=== PATIENT | female | born 1955 | race Caucasian/White ===

== ENCOUNTER 2018-05-23 05:34 | Inpatient (IN) | payer OTHER ==
[2018-05-23] MEDS: traMADol 50 MG TAB PO (06:10)
[2018-05-23] MEDS: DEXAMETHASONE 1 MG TAB PO (06:10)
[2018-05-23] MEDS: GABAPENTIN 300 MG CAP PO ×2 (06:10→21:21)
[2018-05-23] MEDS: LACTATED RINGER'S 1,000 ML IV ×2 (06:30→15:57)
[2018-05-23] MEDS ORDERED: BUPIVACAINE 0.5%/EPI (SDV) 30 ML INJ (06:47)
[2018-05-23] MEDS: CEFAZOLIN 2 GM/50 ML (PMX) 50 ML IVPB (07:00)
[2018-05-23] MEDS ORDERED: NEOSTIGMINE 3 MG/3 ML SYRINGE (07:08)
[2018-05-23] MEDS ORDERED: GLYCOPYRROLATE 0.4 MG INJ (07:08)
[2018-05-23] MEDS ORDERED: PROPOFOL 20 ML (07:08)
[2018-05-23] MEDS ORDERED: CEFAZOLIN 1 GM INJ (07:08)
[2018-05-23] MEDS ORDERED: ROCURONIUM 50 MG INJ (07:08)
[2018-05-23] MEDS ORDERED: MIDAZOLAM 1 MG/ML 2 ML INJ (07:09)
[2018-05-23] MEDS ORDERED: DEXAMETHASONE 4 MG/ML 1 ML INJ (07:09)
[2018-05-23] MEDS ORDERED: ONDANSETRON 4 MG INJ (07:09)
[2018-05-23] MEDS ORDERED: FENTAnyl 50 MCG/ML VIAL (07:09)
[2018-05-23] MEDS ORDERED: ROPIVACAINE 0.5 % 30 ML VIAL (07:12)
[2018-05-23] MEDS ORDERED: MEPERIDINE 25 MG INJ IV (07:30)
[2018-05-23] MEDS ORDERED: MIDAZOLAM 1 MG/ML 2 ML INJ IV (07:30)
[2018-05-23] MEDS ORDERED: IPRATROPIUM (NEB) 0.5 MG/2.5 ML AMP HHN (07:30)
[2018-05-23] MEDS ORDERED: DIPHENHYDRAMINE 50 MG INJ IV ×2 (07:30→09:00)
[2018-05-23] MEDS ORDERED: hydrALAzine 20 MG INJ IV (07:30)
[2018-05-23] MEDS ORDERED: LABETALOL HCL 20MG INJ IV (07:30)
[2018-05-23] MEDS ORDERED: TRIMETHOBENZAMIDE 100 MG/ML VIAL IM (07:30)
[2018-05-23] MEDS ORDERED: OXYCODONE/ACETAMINOPHEN (5/325) TAB PO ×3 (07:30→09:00)
[2018-05-23] MEDS ORDERED: EPHEDrine SULFATE 50 MG/5 ML SYG IV (07:30)
[2018-05-23] MEDS ORDERED: HYDROmorphONE 1 MG/5 ML IV SYRINGE IV ×3 (07:30)
[2018-05-23] MEDS: TRANEXAMIC ACID 1,000 MG in DEXTROSE 5% 100 ML IVPB (07:30)
[2018-05-23] MEDS ORDERED: FENTAnyl 50 MCG/ML VIAL IV ×3 (07:30)
[2018-05-23] MEDS ORDERED: ALBUTEROL 0.083% (NEB) 2.5 MG/3 ML AMP HHN (07:30)
[2018-05-23] MEDS: POLYMYXIN/BACITRACIN 1L IRRIG (07:41)
[2018-05-23] MEDS: BUPIVACAINE 0.5% (SDV) 30 ML, morphine SULFATE (PF) 8 MG, EPINEPHrine 0.3 MG, KETOROLAC... IRR (07:43)
[2018-05-23] MEDS: CA CHLORIDE 10% 10 ML SYRINGE (08:08)
[2018-05-23] MEDS: THROMBIN 5000 UNIT VIAL (08:08)
[2018-05-23] MEDS ORDERED: MAGNESIUM HYDROXIDE 30ML CUP PO (09:00)
[2018-05-23] MEDS ORDERED: ONDANSETRON 4 MG INJ IV (09:00)
[2018-05-23] MEDS ORDERED: KETOROLAC 15 MG INJ IV (09:00)
[2018-05-23] MEDS ORDERED: morphine 2 MG INJ IV (09:00)
[2018-05-23] MEDS ORDERED: ACETAMINOPHEN 500 MG TAB PO (09:00)
[2018-05-23] MEDS ORDERED: ZOLPIDEM 5 MG TAB PO (09:00)
[2018-05-23] MEDS: PROVENTIL HFA 6.7GM INHALER INH ×4 (09:00→21:00)
[2018-05-23] MEDS ORDERED: ASPIRIN (EC) 325 MG TAB PO (09:18)
[2018-05-23] MEDS ORDERED: CEFAZOLIN 1 GM/50 ML (PMX) 50 ML IVPB (09:21)
[2018-05-23] MEDS ORDERED: ASPIRIN 81 MG TAB (09:34)
[2018-05-23] MEDS: TRANEXAMIC ACID 1,000 MG in DEXTROSE 5% 100 ML IV (09:59)
[2018-05-23] MEDS: ASPIRIN 81 MG TAB PO (10:02)
[2018-05-23] MEDS: CEFAZOLIN 1 GM/50 ML (PMX) 50 ML IVPB ×2 (10:06→17:31)
[2018-05-23] MEDS: ONDANSETRON 4 MG INJ IV (10:13)
[2018-05-23] MEDS: DEXAMETHASONE 2 MG TAB PO ×2 (11:58→17:31)
[2018-05-23] MEDS: SENNA/DOCUSATE NA (8.6MG/50MG) TAB PO ×2 (11:58→21:21)
[2018-05-23] MEDS: morphine 2 MG INJ IV (18:51)
[2018-05-23] MEDS: OXYCODONE/ACETAMINOPHEN (5/325) TAB PO (21:31)
[2018-05-24] MEDS: PROVENTIL HFA 6.7GM INHALER INH ×3 (00:36→08:25)
[2018-05-24] MEDS: CEFAZOLIN 1 GM/50 ML (PMX) 50 ML IVPB (00:41)
[2018-05-24] MEDS: DEXAMETHASONE 2 MG TAB PO ×2 (00:41→06:03)
[2018-05-24] MEDS: OXYCODONE/ACETAMINOPHEN (5/325) TAB PO (06:05)
[2018-05-24] MEDS: SENNA/DOCUSATE NA (8.6MG/50MG) TAB PO (08:23)
[2018-05-24] MEDS: ASPIRIN 81 MG TAB PO (08:23)
== END 2018-05-24 12:10 | disposition home or self-care (01) | DRG 483 ==
LOC: REC 05:34 → MS1 09:59
PROC: 0RRJ00Z Replacement of Right Shoulder Joint with Reverse Ball and Socket Synthetic Substitute, Open Approach (ICD-10-PCS; principal; 2018-05-23 07:00)
PROC: 0PB90ZZ Excision of Right Clavicle, Open Approach (ICD-10-PCS; 2018-05-23 07:00)
DX: M75.101 Unspecified rotator cuff tear or rupture of right shoulder, not specified as traumatic (principal)
CPT/HCPCS: 73030-RT; 86999; 88304; 88311; 97166

== ENCOUNTER 2018-08-17 09:32 | Inpatient (IN) | payer OTHER ==
[~2018-08-17 09:32] MED LIST: DESFLURANE 15 MIN; GLYCOPYRROLATE 0.4 MG INJ; METOCLOPRAMIDE 10 MG INJ; NEOSTIGMINE 3 MG/3 ML SYRINGE; TRANEXAMIC ACID 1GM/100ML(PMX) 100 ML IVPB
[2018-08-17] MEDS ORDERED: BUPIVACAINE 0.5% (SDV) 30 ML, morphine SULFATE (PF) 8 MG, EPINEPHrine 0.3 MG, KETOROLAC... IRR (10:00)
[2018-08-17] MEDS ORDERED: CEFAZOLIN 2 GM/50 ML (PMX) 50 ML IVPB (10:00)
[2018-08-17] MEDS ORDERED: FENTAnyl 50 MCG/ML VIAL (10:17)
[2018-08-17] MEDS ORDERED: LIDOCAINE 2% (SDV) 5 ML INJ (10:18)
[2018-08-17] MEDS ORDERED: MIDAZOLAM 1 MG/ML 2 ML INJ (10:18)
[2018-08-17] MEDS ORDERED: PROPOFOL 20 ML (10:18)
[2018-08-17] MEDS ORDERED: ONDANSETRON 4 MG INJ (10:20)
[2018-08-17] MEDS ORDERED: IPRATROPIUM (NEB) 0.5 MG/2.5 ML AMP HHN (10:30)
[2018-08-17] MEDS ORDERED: LEVALBUTEROL (NEB) 1.25 MG/0.5 ML AMP HHN (10:30)
[2018-08-17] MEDS ORDERED: ONDANSETRON 4 MG INJ IV ×2 (10:30→14:00)
[2018-08-17] MEDS ORDERED: MIDAZOLAM 1 MG/ML 2 ML INJ IV (10:30)
[2018-08-17] MEDS ORDERED: MEPERIDINE 25 MG INJ IV (10:30)
[2018-08-17] MEDS ORDERED: hydrALAzine 20 MG INJ IV (10:30)
[2018-08-17] MEDS ORDERED: FENTAnyl 50 MCG/ML VIAL IV ×2 (10:30)
[2018-08-17] MEDS ORDERED: DIPHENHYDRAMINE 50 MG INJ IV ×2 (10:30→14:00)
[2018-08-17] MEDS ORDERED: HYDROmorphONE 1 MG/5 ML IV SYRINGE IV ×3 (10:30)
[2018-08-17] MEDS ORDERED: LABETALOL HCL 20MG INJ IV (10:30)
[2018-08-17] MEDS: GABAPENTIN 300 MG CAP PO ×2 (10:38→20:39)
[2018-08-17] MEDS: DEXAMETHASONE 1 MG TAB PO (10:38)
[2018-08-17] MEDS ORDERED: ROPIVACAINE 0.5 % 30 ML VIAL (12:00)
[2018-08-17] MEDS ORDERED: THROMBIN 5000 UNIT VIAL (12:32)
[2018-08-17] MEDS: POLYMYXIN/BACITRACIN 1L IRRIG (12:32)
[2018-08-17] MEDS ORDERED: CA CHLORIDE (GM) 10% 10 ML INJ (12:32)
[2018-08-17] MEDS ORDERED: EPHEDrine 50 MG INJ (13:00)
[2018-08-17] MEDS: PROVENTIL HFA 6.7GM INHALER INH (13:00)
[2018-08-17] MEDS ORDERED: ZOLPIDEM 5 MG TAB PO (14:00)
[2018-08-17] MEDS ORDERED: oxyCODONE 5 MG TAB PO ×2 (14:00)
[2018-08-17] MEDS ORDERED: MAGNESIUM HYDROXIDE 30ML CUP PO (14:00)
[2018-08-17] MEDS ORDERED: NACL 0.9% 3 ML SYG IV (14:00)
[2018-08-17] MEDS ORDERED: LOPERAMIDE 2 MG CAP PO (14:00)
[2018-08-17] MEDS ORDERED: KETOROLAC 15 MG INJ IV (14:00)
[2018-08-17] MEDS: TRANEXAMIC ACID 1GM/100ML(PMX) 100 ML IVPB (14:33)
[2018-08-17] MEDS: CEFAZOLIN 1 GM/50 ML (PMX) 50 ML IVPB ×2 (14:33→21:40)
[2018-08-17] MEDS ORDERED: NITROGLYCERIN (SL) 0.4 MG TAB SL (17:00)
[2018-08-17 17:43] LABS: ADD MAN DIFF? NO
[2018-08-17 17:47] LABS: WHITE BLOOD COUNT 12.2 10^3/ul (4.8-10.8)
[2018-08-17 17:47] LABS: BASOPHIL # 0.1 10^3/ul (0.0-0.1); BASOPHILS % 0.4 % (0.0-2.0); EOSINOPHILS % 0.1 % (0.0-7.0); HEMATOCRIT 34.2 % (37.0-47.0); HEMOGLOBIN 10.8 g/dl (12.0-16.0); LYMPHOCYTES # 1.1 10^3/ul (0.8-2.9); LYMPHOCYTES % 8.9 % (15.0-51.0); MEAN CORPUSCULAR HEMOGLOBIN 28.4 pg (29.0-33.0); MEAN CORPUSCULAR HGB CONC 31.6 g/dl (32.0-37.0); MONOCYTE # 0.7 10^3/ul (0.3-0.9); MONOCYTES % 5.5 % (0.0-11.0); NEUTROPHIL # 10.3 10^3/ul (1.6-7.5); NEUTROPHILS % 84.7 % (39.0-77.0); PLATELET COUNT 233 10^3/UL (140-415); RED CELL DISTRIBUTION WIDTH 13.8 % (11.5-14.5)
[2018-08-17 17:50] LABS: POSITIVE DIFF @See below
[2018-08-17 18:04] LABS: ALBUMIN 3.2 g/dl (3.3-4.9); ANION GAP 3 (5-13); BLOOD UREA NITROGEN 15 mg/dl (7-20); CALCIUM 8.4 mg/dl (8.4-10.2); CARBON DIOXIDE 26 mmol/L (21-31); CHLORIDE 107 mmol/L (97-110); CREATININE 0.69 mg/dl (0.44-1.00); GLUCOSE 87 mg/dl (70-220); MAGNESIUM 1.7 mg/dl (1.7-2.5); PHOSPHORUS 3.7 mg/dl (2.5-4.9); POTASSIUM 4.3 mmol/L (3.5-5.1); SODIUM 136 mmol/L (135-144)
[2018-08-17 18:13] LABS: CREATINE KINASE 321 IU/L (23-200)
[2018-08-17] MEDS: ACETAMINOPHEN 500 MG TAB PO ×2 (18:13→23:52)
[2018-08-17] MEDS: DEXAMETHASONE 2 MG TAB PO ×2 (18:13→23:52)
[2018-08-17 18:26] LABS: CK-MB 6.39 ng/ml (0.0-2.4); TROPONIN-I < 0.012 ng/ml (0.000-0.120)
[2018-08-17] MEDS: SENNA/DOCUSATE NA (8.6MG/50MG) TAB PO (20:39)
[2018-08-18 01:13] LABS: CREATINE KINASE 454 IU/L (23-200)
[2018-08-18 01:23] LABS: CK-MB 4.67 ng/ml (0.0-2.4); TROPONIN-I < 0.012 ng/ml (0.000-0.120)
[2018-08-18] MEDS: HYDROmorphONE 1 MG/ML SYG IV (04:05)
[2018-08-18] MEDS: CEFAZOLIN 1 GM/50 ML (PMX) 50 ML IVPB (05:16)
[2018-08-18] MEDS: ACETAMINOPHEN 500 MG TAB PO ×2 (05:17→12:05)
[2018-08-18] MEDS: DEXAMETHASONE 2 MG TAB PO ×2 (05:17→12:05)
[2018-08-18 07:00] LABS: CREATINE KINASE 471 IU/L (23-200)
[2018-08-18 07:11] LABS: CK-MB 4.61 ng/ml (0.0-2.4); TROPONIN-I < 0.012 ng/ml (0.000-0.120)
[2018-08-18] MEDS: SENNA/DOCUSATE NA (8.6MG/50MG) TAB PO (09:11)
[2018-08-18] MEDS: oxyCODONE 5 MG TAB PO (09:14)
== END 2018-08-18 14:15 | disposition home or self-care (01) | DRG 483 ==
LOC: REC 09:32 → MS1 15:11
PROC: 0RRK00Z Replacement of Left Shoulder Joint with Reverse Ball and Socket Synthetic Substitute, Open Approach (ICD-10-PCS; principal; 2018-08-17 11:56)
PROC: 0LS40ZZ Reposition Left Upper Arm Tendon, Open Approach (ICD-10-PCS; 2018-08-17 11:56)
DX: M19.012 Primary osteoarthritis, left shoulder (principal); M75.102 Unspecified rotator cuff tear or rupture of left shoulder, not specified as traumatic; E78.5 Hyperlipidemia, unspecified; G62.9 Polyneuropathy, unspecified; R07.89 Other chest pain
CPT/HCPCS: 73030; 80069; 82550; 82553; 83735; 84484; 85025; 86999; 88304; 88311; 93005; 93306; 97161